=== PATIENT | female | born 1930 | race Caucasian/White ===

== ENCOUNTER → 2017-11-11 | Outpatient (CLI) | payer MEDICARE, OTHER ==
[~2017-11-11] MED LIST: NORVASC5 MG PO; SYNTHROID50 MCG PO; SYNTHROID75 MCG PO; TOPROL XL25 MG PO
== END ==
LOC: M.RAD 10:36
DX: Z12.31 Encounter for screening mammogram for malignant neoplasm of breast (principal)

== ENCOUNTER → 2018-11-19 | Outpatient (CLI) | payer MEDICARE, OTHER | LOC: M.RAD 11:02 | DX: Z12.31 Encounter for screening mammogram for malignant neoplasm of breast (principal) ==

== ENCOUNTER 2019-01-27 16:01 | Emergency (ER) | payer MEDICARE, OTHER ==
[~2019-01-27] VITALS: Ht 152.4 cm; Wt 68.0 kg
[2019-01-27 16:58] LABS: ABSOLUTE BASOPHILS 0.1 thou/uL (0.0-0.2); ABSOLUTE EOSINOPHILS 0.2 thou/uL (0.0-0.7); ABSOLUTE LYMPHOCYTES 3.3 thou/uL (0.8-5.3); ABSOLUTE MONOCYTES 0.5 thou/uL (0.0-1.2); ABSOLUTE NEUTROPHILS 2.8 thou/uL (1.6-8.1); BASOPHILS 1.3 %; EOSINOPHILS 2.8 %; HEMATOCRIT 37.2 % (37.0-47.0); HEMOGLOBIN 12.3 gm/dL (12.0-15.0); LYMPHOCYTES 47.9 %; MCH 30.6 pg (26.0-34.0); MCHC 33.2 g/dL (28.0-37.0); MCV 92.1 fL (80.0-100.0); MONOCYTES 7.2 %; MPV 7.9 fl. (7.2-11.1); NUCLEATED RBCS 0 /100WBC; PLATELET COUNT* 233 thou/uL (150-400); POLYS 40.8 %; RBC 4.04 mil/uL (4.20-5.00); RDW-CV 14.4 % (10.5-14.5); WBC 6.8 thou/uL (4.0-11.0)
[2019-01-27 17:05] LABS: ANION GAP 11 mmol/L (7-16); BUN 23 mg/dL (7-18); CALCIUM 9.2 mg/dL (8.5-10.1); CHLORIDE 106 mmol/L (98-107); CO2 25 mmol/L (21-32); CREATININE 1.3 mg/dL (0.6-1.3); GLUCOSE 158 mg/dL (70-99); POTASSIUM 3.8 mmol/L (3.5-5.1); SODIUM 142 mmol/L (136-145)
[2019-01-27 17:08] LABS: APTT 27.3 Seconds (25.0-31.3); PROTIME 10.7 Seconds (9.20-11.50)
[2019-01-27 17:19] LABS: ALBUMIN 3.6 g/dL (3.4-5.0); ALKALINE PHOSPHATASE 71 U/L (46-116); CK-MB MASS 5.6 ng/mL (<0.5-3.6); LIPASE 151 U/L (73-393); MAGNESIUM 2.1 mg/dL (1.8-2.4); NT-PRO BRAIN NAT PEPTIDE 614 pg/mL (<300); SGOT 26 U/L (15-37); SGPT 24 U/L (30-65); TOTAL BILIRUBIN 0.3 mg/dL (<0.1-1.0); TOTAL PROTEIN 7.6 g/dL (6.4-8.2); TROPONIN-I LEVEL <0.06 ng/mL (<0.06)
[2019-01-27 18:29] VITALS: BP 138/53
--- NOTE | 2019-01-28 11:10 | EKG ---
[place] [address] ELECTROCARDIOGRAM REPORT Name: SU WHEELER Room: [facility]#: [id number] Admission: 01/27/19 Attend Phys: Discharge: 01/27/19 Date of : 32 Report #: [id number] THIS REPORT FOR: //name// [facility] ED Test Date: 2019-01-27 Test Time: 16:04:27 Pat Name: SU WHEELER Department: Room: Gender: F [employer]istics Supply Officer: : [id number] Requested By: Jayy Phillips Order Number: [id number] MD: Bull Sam Measurements Intervals [place] Rate: 79 P: 37 DE: 142 QRS: -36 QRSD: 135 T: 43 QT: 407 QTc: 467 Interpretive Statements Sinus rhythm with pac Right bundle branch block Left ventricular hypertrophy Nonspecific T abnormalities, lateral leads Baseline wander in lead(s) V6 Compared to ECG 06/01/2017 14:22:05 T-wave abnormality now present Electronically Signed On 01-28-2019 11:10:42 CDT by Bull Sam [email or web address] <ELECTRONICALLY SIGNED> By: Bull Sam MD, FAC 01/28/19 1110 1604 1604 Bull Sam MD, [facility] /EPI
== END 2019-01-27 18:30 | disposition home or self-care (01) ==
LOC: M.ERS 16:01
PROVIDERS: Family Medicine
DX: R07.89 Other chest pain (principal); I10 Essential (primary) hypertension; Z88.2 Allergy status to sulfonamides; Z90.49 Acquired absence of other specified parts of digestive tract